=== PATIENT | male | born 1975 | race Caucasian/White ===

== ENCOUNTER 2016-03-21 15:29 | Emergency (ER) | payer OTHER ==
[~2016-03-21] VITALS: Ht 172.7 cm; Wt 125.0 kg
[2016-03-21 15:31] VITALS: BP 148/85; PULSE 98; RESP 18; TEMP 98.2; O2SAT 95
[2016-03-21] MEDS ORDERED: METF1000 PO (15:46)
--- NOTE | 2016-03-21 16:18 | PD ---
HPI Chief Complaint: Musculoskeletal Complaint Time Seen by Provider: 16:14 Travel History International Travel<30 days: No Contact w/Intl Traveler<30days: No Traveled to known affect area: No History of Present Illness HPI Patient comes in complaining of left hamstring pain that occurred while at work today. 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 Patient has been having sharp aching pain in left hamstring since is worse with walking. Patient denies any numbness or tingling. Patient denies doing anything for this prior coming to the emergency department. Pain radiates proximally and distally. PFSH Past Medical History Diabetes: Yes Patient Takes Glucophage: Yes Tetanus Vaccination: < 5 Years Influenza Vaccination: Yes Past Surgical History Neurologic Surgery: Yes (LAMINECTOMY) Social History Alcohol Use: No Tobacco Use: No Substance Use: No Allergies-Medications (Allergen,Severity, Reaction): Coded Allergies: No Known Allergies (Unverified , 03/21/16) Reported Meds & Prescriptions Reported Meds & Active Scripts Active Flexeril (Cyclobenzaprine HCl) 10 Mg Tab 10 Mg PO Q8HR PRN Naprosyn (Naproxen) 500 Mg Tab 500 Mg PO Q12HR PRN Reported Metformin (Metformin HCl) 1,000 Mg Tab 1,000 Mg PO DAILY With a meal Review of Systems Except as stated in HPI: all other systems reviewed are Neg Physical Exam Narrative GENERAL: Well-developed, overly nourished, in no acute distress, and non-ill appearing. SKIN: Warm and dry. HEAD: Atraumatic. Normocephalic. EYES: Pupils equal and round. EOMI. No scleral icterus. No injection or drainage. ENT: No nasal bleeding or discharge. Mucous membranes pink and moist. NECK: Trachea midline. Supple. No nuclear rigidity. CARDIOVASCULAR: No pedal edema. RESPIRATORY: No accessory muscle use. No respiratory distress. MUSCULOSKELETAL: No obvious deformities. No clubbing. No cyanosis. No edema. Full range of motion. Hip: FROM and equal BL with passive flexion, extension, Abduction, Adduction, and internal/external rotation. FROM distal to injury and equal BL. Strength distal to injury equal BL. Sensation intact over web spacing bilateral lower extremities. Plantar flexion and dorsal flexion equal BL. Dorsal pulses equal BL. Patient reports tenderness to palpation over lateral aspect of left hamstring. NEUROLOGICAL: Awake and alert. No obvious cranial nerve deficits. Motor grossly within normal limits. Normal speech. PSYCHIATRIC: Appropriate mood and affect; insight and judgment normal. Data Data Last Documented VS Vital Signs Date Time Temp Pulse Resp B/P Pulse Ox O2 Delivery O2 Flow Rate FiO2 03/21/16 15:31 98.2 98 18 148/85 95 Room Air Orders ^ Gene Bandage (03/21/16 16:18) MDM Medical Decision Making Medical Screen Exam Complete: Yes Emergency Medical Condition: Yes Differential Diagnosis Fracture, strain, contusion, other Narrative Course There is no clinical evidence for fracture. There is no clinical evidence to suspect bony injury by exam. No obvious ligamental injury or internal derangement is noted at this time. The distal extremity appears neurovascularly intact, without evidence of neurovascular injury nor compartment syndrome. Tendon exam also was intact. The effected limb was splinted. The patient was discharged on pain medication along with sprain care instructions and given warnings for vascular compromise. The patient is to follow up with workman's comp provider. The patient agrees with plan. Patient in no obvious distress upon re-evaluation. Patient was asked if they wanted to speak to my attending, which the patient did not wish to do at this time. Any questions/concerns in reference to patient diagnosis/condition discussed and clarified prior to patient's discharge. Reinforced sheer importance of close follow up with patient's Workmen's Comp. provider. Instructed patient to return to ED immediately, if symptoms return/worsen. Pt showed understanding of above instructions. Further instructions and recommendations were detailed in discharge paperwork. Pt ambulated without difficulty out of ED at discharge. Diagnosis Primary Impression: Left hamstring muscle strain Qualified Code: S76.312A - Left hamstring muscle strain, initial encounter Patient Instructions: General Instructions, Muscle Strain (ED) Additional Instructions: Follow-up with your primary care physician and/or Workmen's Comp. provider in 2- 3 days for evaluation. Take all medication as prescribed. Apply ice to affected area as needed for pain. Wear Gene wrap for comfort. Return to the emergency department if symptoms get worse. Med/Other Pt SpecificInfo: Prescription(s) given Scripts Cyclobenzaprine (Flexeril)10 Mg Tab10 Mg PO Q8HR PRN (MUSCLE PAIN) #15 TAB Ref 0 Prov:Highet,Myriam H. MD 03/21/16 Naproxen (Naprosyn)500 Mg Nab431 Mg PO Q12HR PRN (PAIN SCALE 1 TO 10) #14 TAB Ref 0 Prov:Myriam Gonsales MD 03/21/16 Disposition: 01 DISCHARGE HOME Condition: Stable Rustam Jimenez Mar 21, 2016 16:18
[2016-03-21] MEDS ORDERED: CYCL1TAB29 PO (16:20)
[2016-03-21] MEDS ORDERED: NAPR500 PO (16:20)
== END 2016-03-21 16:52 | disposition home or self-care (01) ==
LOC: NEPB 15:29
DX: S86.112A Strain of other muscle(s) and tendon(s) of posterior muscle group at lower leg level, left leg, initial encounter (principal); E11.9 Type 2 diabetes mellitus without complications; X50.0XXA Overexertion from strenuous movement or load, initial encounter; Y93.F2 Activity, caregiving, lifting; Y92.122 Bedroom in nursing home as the place of occurrence of the external cause; Y99.0 Civilian activity done for income or pay
CPT/HCPCS: 99283